=== PATIENT | female | born 2000 | race Caucasian/White ===

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

== ENCOUNTER 2024-10-27 09:02 | Emergency (ER) | payer SELFPAY ==
[~2024-10-27] VITALS: Wt 90.7 kg
[2024-10-27] MEDS ORDERED: IBUPROFEN 800 MG TAB PO ONE (09:20)
[2024-10-27] MEDS ORDERED: AVPAK AZITHROM250 M1 PO (10:14)
== END 2024-10-27 10:20 | disposition home or self-care (01) ==
LOC: ED 09:02
DX: J40 Bronchitis, not specified as acute or chronic (principal); Z20.822 Contact with and (suspected) exposure to COVID-19; J04.0 Acute laryngitis

== ENCOUNTER 2025-07-06 12:54 | Emergency (ER) | payer MEDICAID ==
[~2025-07-06] VITALS: Ht 162.5 cm; Wt 107.0 kg
[~2025-07-06 12:54] MED LIST changes: +AVPAK AZITHROM250 M1 PO
[2025-07-06] MEDS ORDERED: SODIUM CHLORIDE 0.9% 1,000 ML IV ONE (13:40)
[2025-07-06 14:07] LABS: BASO # 0.0 10*3/uL (0.0-0.1); BASO % 0.2 % (0.0-1.0); EOS # 0.0 10*3/uL (0.0-0.4); EOS % 0.2 % (1.0-4.0); MEAN CELL VOLUME 88.1 fl (81.0-99.0); MEAN CORPUSCULAR HGB 28.0 pg (27.0-31.0); MEAN PLATELET VOLUME 11.0 fl (9.6-12.3); MONO # 0.6 10*3/uL (0.1-1.0); MONO % 4.4 % (3.0-9.0); NEUT # 10.1 10*3/uL (2.3-7.9); NEUT % 79.7 % (47.0-73.0); NUCLEATED RED BLOOD CELL 0.0 % (0.0-0.0); NUCLEATED RED BLOOD CELL 0.0 10*3/uL (0.0-0.0); PLATELET COUNT AUTOMATED 245 10*3/uL (130-400); RED CELL DISTRI WIDTH 13.3 % (0-14.5)
[2025-07-06 14:08] LABS: BILIRUBIN Negative (Negative); BLOOD Negative (Negative); CLARITY Turbid (Clear); COLOR Yellow (Yellow); KETONE Trace (Negative); LEUKO ESTERASE Negative (Negative); NITRITE Negative (Negative); SPECIFIC GRAVITY 1.025 (1.001-1.030); UROBILINOGEN 1.0 E.U./dl (0.0-1.0)
[2025-07-06 14:09] LABS: PH 8.5 (4.5-8.0)
[2025-07-06 14:15] LABS: BACTERIA 1+
[2025-07-06] MEDS ORDERED: Ondansetron Hydrochloride 4 MG/2 ML VIAL IV ONE (14:50)
[2025-07-06 14:54] LABS: BUN < 5 mg/dl (9-23); SGPT/ALT 9 U/L (5-49)
[2025-07-06] MEDS ORDERED: CEPHALEXIN500 M1 PO (18:20)
[2025-07-06] MEDS ORDERED: Ondansetron4 MG PO (18:20)
[2025-07-06] MEDS ORDERED: MIRALAX POWDER17 G1 PO (18:20)
== END 2025-07-06 18:28 | disposition home or self-care (01) ==
LOC: ED 12:54
PROVIDERS: Nurse Practitioner Family
DX: O26.891 Other specified pregnancy related conditions, first trimester (principal); R82.71 Bacteriuria; K59.00 Constipation, unspecified; O21.8 Other vomiting complicating pregnancy; Z3A.01 Less than 8 weeks gestation of pregnancy